=== PATIENT | female | born 1945 | race Caucasian/White ===

== ENCOUNTER 2022-09-08 11:05 | Outpatient (CLI) | payer MEDICARE, OTHER, SELFPAY | END 2022-09-08 11:06 | disposition home or self-care (01) | PROVIDERS: PCP Family Medicine; Visit Provider Orthopaedic Surgery Sports Medicine | DX: Z01.818 Encounter for other preprocedural examination (principal) | CPT/HCPCS: 36415; 86850; 86900; 86901 ==

== ENCOUNTER 2022-09-10 11:06 | Day surgery (SDC) | payer MEDICARE, OTHER, SELFPAY ==
[2022-09-07] MEDS: MIDAZOLAM HCL 1 MG/ML inj IVP (14:20)
[2022-09-07] MEDS: fentaNYL 100 MCG/2 ML inj IVP (14:20)
[2022-09-10] VITALS (21 sets, daily range): BP systolic 96–140; BP diastolic 56–83; PULSE 58–84; RESP 14–20; TEMP 35.3–36.7; O2SAT 92–100; BMI 32.2
[2022-09-10] MEDS: CELECOXIB 200 MG CAPSULE PO ×2 (11:45→21:37)
[2022-09-10] MEDS: SODIUM CHLORIDE 0.9 % (FLUSH) 10 ML SYRINGE IVF (11:45)
[2022-09-10] MEDS: OXYCODONE (CR) 10 MG TAB.ER.12H PO (11:45)
[2022-09-10] MEDS: LACTATED RINGERS 1000 ML 1,000 ML 100 ML IV ×2 (11:45→16:31)
[2022-09-10] MEDS: ACETAMINOPHEN 500 MG TABLET 1000 MG PO ×3 (11:45→23:45)
--- NOTE | 2022-09-10 13:15 | CRLHL7_ITS ---
For Patients: As a result of the Cures Act, medical imaging exams and procedure reports are released immediately into your electronic medical record. You may view this report before your referring provider. If you have questions, please contact your health care provider. Indication: Hip replacement surgery Technique: AP hip fluoroscopic images. Fluoroscopy time 38.9 seconds. Findings/Impression: Hardware from a left total hip arthroplasty is in satisfactory position. Dictated by Demond Rashid MD @ 09/11/2022 9:30:21 AM (Electronically Signed)
--- NOTE | 2022-09-10 14:45 | W.PM.NB ---
Nerve Block Nerve Block Time Seen by Provider: 14:31 Date Seen: 09/10/22 Type of block requested by surgeon for post-operative analgesia: ESTELLE/LFCN Side: left Time out performed: Yes Verification of patient name: Yes Verification of date of : Yes Site marking: site marked Name of person performing procedure: Horace Gonzalez Continuous monitoring Was continuous monitoring of O2 sat, B/P, blow molding machine tender, recorded every 15 minutes?: Yes Procedure Checklist: sterile prep, needles and gloves Ultrasound guided. Images saved: Yes Medications given in 5ml increments after negative aspiration: Ropivicaine %: 0.5 mL: 20 Needle gauge: 20 Decadron (mg): 10 Precedex (mcg): 20 Patient tolerated procedure well: Yes Block Charges Block Charge (with Pro Fee): Femoral Nerve Use of Ultrasound Machine for Block: Yes- US Guidance/pain block
--- NOTE | 2022-09-10 14:45 | SUR.PREOP ---
TIME?OUT:?1419 PT/RN/MDA?VERIFICATION?OF?SURGICAL?SITE left hip,?PROCEDURE nerve block,?AND?CONSENT OBTAINED?PRIOR?TO?INVASIVE?PROCEDURE.
[2022-09-10] MEDS: TRANEXAMIC ACID 100 MG/ML INJ 1000 MG IV (15:05)
[2022-09-10] MEDS: CEFAZOLIN 2 GM in 0.9 % SODIUM CHLORIDE Mini-bag 100 ML IVPB ×2 (15:10→21:36)
--- NOTE | 2022-09-10 16:02 | PM.IMPN1 ---
Progress Note: A&P Assessment and plan (1) Osteoarthritis of left hip: Problem details: Severe Status: Acute Plan 1. s/p left total hip -pain control; diet, dvt ppx per surgery 2. hx of CAD/HTN/PAF -continue eliquis -continue BB, Statin, lisinopril 3. Hx of Type II DM -SSI 4. hx of HLD -continue statin 5. Hx of JEN 6. Hx of RODRIGUE; not on cpap Time Spent With Patient Total time spent: 30 Subjective Date Seen: 09/10/22 Interval history: s/p left total hip Spinal Anesthesia EBL 300 denies cp, sob, nausea, vomiting tolerating diet Exam Narrative: Exam Narrative: Gen: no acute distress HEENT: NCAT EOMI mmm CV: RRR normal s1 s2 Lungs: CTAB Abd: Soft,nt, nd Neuro: Alert, oriented, CN grossly intact; nonfocal screening?exam Psych: appropriate affect MSK: age appropriate muscle mass Skin; Warm, dry no rash on face Const: Vital Signs, click to edit/add: Vital Signs - 24 hr 09/10/22 12:04 09/10/22 14:20 09/10/22 14:30 Temperature 97.4 F L Pulse Rate 68 62 61 Respiratory Rate 16 16 16 Blood Pressure 137/68 124/71 122/70 Pulse Oximetry 98 99 98 Oxygen Delivery Me thod Room Air Nasal Cannula Nasal Cannula Oxygen Flow Rate 2 2
--- NOTE | 2022-09-10 16:39 | P.ORPRC_ITS ---
Procedure Note Date of procedure: 09/10/22 Procedure: PREOPERATIVE DIAGNOSIS: 1. Left hip osteoarthritis, severe, primary POSTOPERATIVE DIAGNOSIS: 1. Left hip osteoarthritis, severe, primary PROCEDURE: 1. Left total hip arthroplasty-anterior approach 2. 17626 - intraoperative fluoroscopy up to 1 hour. SURGEON: Chin Savage MD. RADAR AIR TRAFFIC CONTROLLER: HETAL Nance - Of note, a skilled business development assistant was critical for this case to aid in patient positioning, tissue retraction, limb manipulation/positioning, dislocation/relocation, patient safety, and closure. ANESTHESIA: Spinal anesthetic EBL: 300 mL IMPLANTS: DePuy J&J uncemented total hip Dyess cup size 52, hole eliminator, +0 neutral liner Actis stem, standard offset, size 7 +1 mm ceramic 32mm head. COMPLICATIONS: None evident INDICATIONS: The patient is a pleasant 76-year-old female who has experienced severe left hip pain and difficulty bearing weight. Workup included x-rays which revealed severe osteoarthrosis in the hip. Given the deformity, the dysfunction, and the pain, as well as the failure of nonoperative management, recommendation was made for surgery. FINDINGS: Full-thickness chondral loss probably throughout the femoral and superior acetabulum. Large osteophytes around the perimeter of the femoral head/neck junction in particular. Degenerative labral pathology. Large effusion upon entering the joint. DESCRIPTION OF PROCEDURE: Following a thorough discussion of risks, benefits, and alternatives consent was obtained and the left hip was marked. The patient was brought to the operating room and placed supine on the operating table. Induction of anesthesia was undertaken. 2 g IV Ancef and 1 g tranexamic acid was administered within 1 hr of incision preoperatively. Proper time-out was performed identifying proper patient, site, procedure. The operative extremity was prepped and draped in the appropriate sterile fashion using ChloraPrep after the patient was positioned on the [place] table with head in neutral alignment and all bony prominences well padded. C-arm fluoroscopic imaging was utilized to confirm proper pelvis rotation and position, and to get true AP films of both the contralateral left, and the affected left hip. This is for comparison. A longitudinal incision was made starting approximately 1 cm distal to the ASIS, and 3-4 cm lateral. The incision was extended distally aiming toward the lateral border the patella. Sharp incision through skin and bovie cautery through the subcutaneous tissue allowed identification of the TFL fascia. This was sharply divided, and the fascia bluntly released from the muscle fibers as we dissected medial. Upon coming to the medial border, we were able to retract the TFL laterally, and penetrated the deeper fascia and identify the crossing circumflex vessels. These were ligated/cauterized. The rectus was elevated from the capsule, and retractors placed laterally and medially along the femoral neck to help with visualization of the capsule. We then performed an inverted T capsulotomy. The capsule was tagged for later repair. Retractors were placed inside the capsule. The femoral neck was visualized after releasing medially down to the lesser trochanter, along the saddle laterally, and up onto the acetabulum. The femoral neck cut was made in line with our preoperative templating. The head was removed in a single piece, and sized. We turned our attention to acetabular preparation. Initially, the labrum was resected from around the perimeter, the pulvinar was excised, allowing us to visualize the false wall. We started the reaming with a 43 mm reamer. This was medialized down to the true wall. We then enlarged our reamers sequentially up to one size less than the selected cup size. We trialed at the same size and found it to have an excellent fit. The selected cup was then opened, inserted, and impacted in line with the goal of 40-45? of abduction, and 20-25? of anteversion. This was confirmed on C-arm fluoroscopic imaging to be in the appropriate/goal position. Once the cup was placed we placed a hole eliminator and a liner consistent with preop planning. Attention was turned to the femoral preparation. The limb was extended, externally rotated, and adducted. The posteromedial capsule was released, as retractors were placed allowing excellent access to the proximal femur. Initially a dust box worker was followed by canal finder followed by various broaches. We broached sequentially up to size noted above, found it to have excellent rotational control, and trialing various heads and necks, revealed that appropriate neck offset, and the above noted head size provided the greatest stability, and pentecostal of length, and offset. C-arm fluoroscopic imaging confirmed position of the stem, as well as leg lengths, which were compared with the pre procedure all fluoroscopic images. Trial implants were removed, the real femoral stem inserted, as was the ceramic head. After reducing, the leg was placed through range of motion and stability was confirmed anterior, posterior, and lateral. A 3 min Betadine soak was then performed, and thorough irrigation with normal saline followed. Closure of the capsule was performed with #1 PDS. Bleeding was confirmed to be controlled at this stage, and the TFL fascia was closed with #0 strata fix. Subcutaneous, and subcuticular closure was performed with 2-0 Vicryl and 4-0 Monocryl, respectively. Dressings were applied, and the patient was awoken from anesthesia and transferred the PACU in stable condition. A skilled business development assistant was critical for this case to aid in patient positioning, tissue retraction, proximal femur exposure, limb manipulation/positioning, dislocation/relocation, patient safety, and closure. PLAN: 1. Weight bear as tolerated operative extremity. 2. 23 hr perioperative antibiotics. 3. Ice. 4. PT/OT consults for ambulation assistance/mobility education. 5. Social work consult for discharge planning. 6. DVT prophylaxis with at SCDs, Gordon Bhatti, and Eliquis (5 mg b.i.d. a medication she is on at baseline).
--- NOTE | 2022-09-10 16:39 | W.ANESCHARGE ---
Anesthesia Charges Start Date/Time Anesthesia Start Date: 09/10/22 Anesthesia Start Time: 14:50 Stop Date/Time Anesthesia Stop Date: 09/10/22 Anesthesia Stop Time: 16:53 Summary Emergency: No Extremes of Age: Over 69-CPT 91620
--- NOTE | 2022-09-10 16:54 | CRLHL7_ITS ---
For Patients: As a result of the Century Cures Act, medical imaging exams and procedure reports are released immediately into your electronic medical record. You may view this report before your referring provider. If you have questions, please contact your health care provider. Indication: Post op NELLIE LT Technique: AP hip centered pelvis and lateral view left hip Findings/Impression: Hardware from a left total hip arthroplasty is in satisfactory position. Bone alignment is normal. No sign of acute fracture. Postop changes are within normal limits. Dictated by Demond Rashid MD @ 09/11/2022 9:20:27 AM (Electronically Signed)
[2022-09-10] MEDS: OXYCODONE 5 MG TABLET PO ×3 (18:24→23:47)
[2022-09-10] MEDS: ROSUVASTATIN CALCIUM 10 MG TABLET 40 MG PO (21:37)
[2022-09-11 03:36] VITALS: BP 120/73; PULSE 66; RESP 18; TEMP 36.5; O2SAT 94
--- NOTE | 2022-09-11 04:52 | PC.NURSE ---
pt up to the bathroom x 2 with asst of 1 with walker and gait belt. C/o pain to left hip while walking and sitting. PRN given with relief. No c/o nausea. No BM this shift. Pt declined stool softener. Blood glucose 268, pt declined insulin.
[2022-09-11] MEDS: OXYCODONE 5 MG TABLET PO ×2 (05:42→08:42)
[2022-09-11] MEDS: ACETAMINOPHEN 500 MG TABLET 1000 MG PO (05:42)
[2022-09-11] MEDS: CEFAZOLIN 2 GM in 0.9 % SODIUM CHLORIDE Mini-bag 100 ML IVPB (05:43)
[2022-09-11 06:21] LABS: Basophils Absolute Auto 0.01 K/uL (0.00-0.30); Basophils Percent Auto 0.1 % (0.0-3.0); Hematocrit 33.1 % (33.0-51.0); Hemoglobin* 10.8 gm/dL (12.0-16.0); Immature Granulocytes Abs Auto 0.02 K/uL (0.00-0.30); Immature Granulocytes Pct Auto 0.2 %; Lymphocytes Percent Auto 6.7 % (20-44); Mean Corpuscular HGB Conc 33 gm/dL (32-36); Mean Corpuscular Hemoglobin 31 pg (26-34); Mean Corpuscular Volume 96 fL (80-100); Monocytes Percent Auto 4.1 % (0.0-11.0); Neutrophils Percent Auto 88.9 % (42.0-72.0); Platelet Count* 157 K/uL (140-440); RDW Coefficient of Variation % 11.9 % (11.5-15.5); Red Blood Count 3.46 m/uL (4.00-5.20); White Blood Count* 10.92 K/uL (4.50-11.00)
[2022-09-11 06:26] LABS: Slide Review Reflex No
[2022-09-11 06:36] LABS: Potassium* 4.7 mmol/L (3.6-5.1); Sodium* 137 mmol/L (135-149)
[2022-09-11 06:39] LABS: Blood Urea Nitrogen* 19 mg/dL (7-30); Creatinine* 0.6 mg/dL (0.5-1.5); Est. Creatinine Clearance* 33.84; Estimated Glomerular Filt Rate 92 ml/min
[2022-09-11 07:00] VITALS: BP 114/64; PULSE 70; RESP 18; TEMP 36.5; O2SAT 94
[2022-09-11] MEDS: LACTATED RINGERS 1000 ML 1,000 ML 75 ML IV (07:01)
--- NOTE | 2022-09-11 08:24 | PM.ORPN ---
Subjective Subjective Date Seen: 09/11/22 Principal diagnosis: Status postop day 1 left total hip arthroplasty - anterior approach Interval history: Patient reports doing well. No acute events over night. She is surprised how well she is feeling. Feels that she is mentally in a good place. Pain managed with scheduled /PRN medications and ice. DVT prophylaxis apixaban (chronic medication), bilateral knee high Gordon stockings, and SCDs. Denies fevers, chills, aches, N/V, CP, SOB/SOW, tachycardia, or lightheadedness. Ortho Exam Narrative Exam Narrative: -Patient appears comfortable in bed; no apparent acute distress -Alert and oriented times 3 -Operative hip swollen; soft tissues supple; no obvious erythema. Ecchymosis minimal. Warmth appropriate -Surgical dressing clean, dry, intact; no obvious drainage, no erythematous streaking peripheral to the bandage -Bilateral calves soft and supple; no significant swelling, edema, tenderness, erythema, discoloration, warmth, or palpable cords -2+ DP/PT pulses, intact dermatomes and myotomes distally (5/5 strength). Numbness about the lateral femoral cutaneous nerve distribution. Const Vital Signs, click to edit/add: Vital Signs - 24 hr 09/10/22 12:04 09/10/22 14:20 09/10/22 14:30 Temperature 97.4 F L Pulse Rate 68 62 61 Pulse Rate [Left Pulse Oximeter] Respiratory Rate 16 16 16 Blood Pressure 137/68 124/71 122/70 Blood Pressure [Right Arm] Pulse Oximetry 98 99 98 Oxygen Delivery Method Room Air Nasal Cannula Nasal Cannula Oxygen Flow Rate 2 2 09/10/22 16:48 09/10/22 16:52 09/10/22 16:55 Temperature 98.1 F Pulse Rate 59 L 62 60 Pulse Rate [Left Pulse Oximeter] Respiratory Rate 16 14 14 Blood Pressure 96/57 L 104/56 L 103/60 Blood Pressure [Right Arm] Pulse Oximetry 100 100 100 Oxygen Delivery Method Room Air Room Air Room Air Oxygen Flow Rate 09/10/22 17:00 09/10/22 17:05 09/10/22 17:10 Temperature Pulse Rate 60 62 62 Pulse Rate [Left Pulse Oximeter] Respiratory Rate 14 16 14 Blood Pressure 108/62 108/56 L 103/56 L Blood Pressure [Right Arm] Pulse Oximetry 100 100 100 Oxygen Delivery Method Room Air Room Air Room Air Oxygen Flow Rate 2 2 09/10/22 17:18 09/10/22 17:24 09/10/22 17:30 Temperature 95.5 F L 96.3 F L Pulse Rate 58 L 61 Pulse Rate [Left Pulse Oximeter] 61 Respiratory Rate 14 16 16 Blood Pressure 122/66 Blood Pressure [Right Arm] 113/76 108/68 Pulse Oximetry 100 94 Oxygen Delivery Method Room Air Room Air Room Air Oxygen Flow Rate 2 09/10/22 17:45 09/10/22 18:00 09/10/22 18:15 Temperature 96.5 F L Pulse Rate Pulse Rate [Left Pulse Oximeter] 60 62 65 Respiratory Rate 16 16 16 Blood Pressure Blood Pressure [Right Arm] 122/74 138/62 137/69 Pulse Oximetry 93 94 94 Oxygen Delivery Method Room Air Room Air Room Air Oxygen Flow Rate 09/10/22 18:30 09/10/22 19:00 09/10/22 20:30 Temperature 96.9 F L 97.1 F L 97.9 F Pulse Rate Pulse Rate [Left Pulse Oximeter] 71 67 67 Respiratory Rate 16 16 18 Blood Pressure Blood Pressure [Right Arm] 140/83 H 138/71 112/58 L Pulse Oximetry 93 94 94 Oxygen Delivery Method Room Air Room Air Room Air Oxygen Flow Rate 09/10/22 19:30 09/10/22 23:27 09/10/22 23:45 Temperature 97.7 F 97.6 F 97.6 F Pulse Rate Pulse Rate [Left Pulse Oximeter] 84 64 Respiratory Rate 20 18 Blood Pressure Blood Pressure [Right Arm] 139/80 120/66 Pulse Oximetry 93 94 Oxygen Delivery Method Room Air Room Air Oxygen Flow Rate 09/11/22 03:36 Temperature 97.7 F Pulse Rate Pulse Rate [Left Pulse Oximeter] 66 Respiratory Rate 18 Blood Pressure Blood Pressure [Right Arm] 120/73 Pulse Oximetry 94 Oxygen Delivery Method Room Air Oxygen Flow Rate Assessment and Plan Assessment and plan (1) Osteoarthritis of left hip: Problem details: Severe Status: Resolved (2) Status post total replacement of left hip: Problem details: NELLIE-AA (09/10/2022, Dr. Savage) Status: Acute Plan - Complete 23 hour perioperative antibiotics. - PT/OT consult for education and assistance. - Social work consult for discharge planning - Prescribed analgesics as needed - DVT prophylaxis: Apixaban, bilateral knee high Gordon Hose stockings and SCDs - Anticipation is for discharge to home with friend today 09/11/2022 if the patient remains medically stable, pain is controlled, and they are safe with mobilization.
--- NOTE | 2022-09-11 08:27 | P.DS_ITS ---
DS: Providers Provider Date Seen: 09/11/22 Date of admission: Med/Surg Recovery 09/10/2022 Primary care physician: Matthias Hoover MD Consults: 09/10/22 17:36 Consult to Occupational Therapy [CONS] Routine Comment: Reason(s) for OT Consult:: ADLs Prior to Discharge Any Restrictions?:: No Restrictions Comment: Consult to Physical Therapy [CONS] Routine Comment: Ambulate in the black today Reason(s) for PT Consult:: Evaluate and Treat Any Restrictions?:: No Restrictions Comment: Nursing Activity Consult to Physician [CONS] Routine Comment: Consulting Provider: Hospitalists Has provider been notified: No Consult to Skein Winding Operator [CONS] Routine Comment: Reason for Consult:: Discharge Planning Needs Attending Physician on discharge: Chin Savage MD Date of Discharge: 09/11/22 DS: Diagnosis Discharge Diagnosis (1) Status post total replacement of left hip: Status: Acute Problem details: NELLIE-AA (09/10/2022, Dr. Savage) DS: Summary Hospital Course Hospital Course: The patient has a history of left hip osteoarthritis, primary, severe. After appropriate preoperative evaluation, the patient underwent left total hip arthroplasty. Postoperatively given anticoagulation for deep vein thrombosis prophylaxis (Apixaban, chronic medication for patient). They progressed to PT/OT and were felt ready and prepared for discharge to home with appropriate pain medication and anticoagulation medications. Status at Discharge Functional status at discharge: uses cane/walker Overall status at discharge: patient is progressing back to baseline Time Spent with Patient Time attestation: Total time spent providing and/or coordinating discharge services: Exam Const: Vital Signs, click to edit/add: Vital Signs - 24 hr 09/10/22 12:04 09/10/22 14:20 09/10/22 14:30 Temperature 97.4 F L Pulse Rate 68 62 61 Pulse Rate [Left P ulse Oximeter] Respiratory Rate 16 16 16 Blood Pressure 137/68 124/71 122/70 Blood Pressure [Ri ght Arm] Pulse Oximetry 98 99 98 Oxygen Delivery Me thod Room Air Nasal Cannula Nasal Cannula Oxygen Flow Rate 2 2 09/10/22 16:48 09/10/22 16:52 09/10/22 16:55 Temperature 98.1 F Pulse Rate 59 L 62 60 Pulse Rate [Left P ulse Oximeter] Respiratory Rate 16 14 14 Blood Pressure 96/57 L 104/56 L 103/60 Blood Pressure [Ri ght Arm] Pulse Oximetry 100 100 100 Oxygen Delivery Me thod Room Air Room Air Room Air Oxygen Flow Rate 09/10/22 17:00 09/10/22 17:05 09/10/22 17:10 Temperature Pulse Rate 60 62 62 Pulse Rate [Left P ulse Oximeter] Respiratory Rate 14 16 14 Blood Pressure 108/62 108/56 L 103/56 L Blood Pressure [Ri ght Arm] Pulse Oximetry 100 100 100 Oxygen Delivery Me thod Room Air Room Air Room Air Oxygen Flow Rate 2 2 09/10/22 17:18 09/10/22 17:24 09/10/22 17:30 Temperature 95.5 F L 96.3 F L Pulse Rate 58 L 61 Pulse Rate [Left P ulse Oximeter] 61 Respiratory Rate 14 16 16 Blood Pressure 122/66 Blood Pressure [Ri ght Arm] 113/76 108/68 Pulse Oximetry 100 94 Oxygen Delivery Me thod Room Air Room Air Room Air Oxygen Flow Rate 2 09/10/22 17:45 09/10/22 18:00 09/10/22 18:15 Temperature 96.5 F L Pulse Rate Pulse Rate [Left P ulse Oximeter] 60 62 65 Respiratory Rate 16 16 16 Blood Pressure Blood Pressure [Ri ght Arm] 122/74 138/62 137/69 Pulse Oximetry 93 94 94 Oxygen Delivery Me thod Room Air Room Air Room Air Oxygen Flow Rate 09/10/22 18:30 09/10/22 19:00 09/10/22 20:30 Temperature 96.9 F L 97.1 F L 97.9 F Pulse Rate Pulse Rate [Left P ulse Oximeter] 71 67 67 Respiratory Rate 16 16 18 Blood Pressure Blood Pressure [Ri ght Arm] 140/83 H 138/71 112/58 L Pulse Oximetry 93 94 94 Oxygen Delivery Me thod Room Air Room Air Room Air Oxygen Flow Rate 09/10/22 19:30 09/10/22 23:27 09/10/22 23:45 Temperature 97.7 F 97.6 F 97.6 F Pulse Rate Pulse Rate [Left P ulse Oximeter] 84 64 Respiratory Rate 20 18 Blood Pressure Blood Pressure [Ri ght Arm] 139/80 120/66 Pulse Oximetry 93 94 Oxygen Delivery Me thod Room Air Room Air Oxygen Flow Rate 09/11/22 03:36 Temperature 97.7 F Pulse Rate Pulse Rate [Left P ulse Oximeter] 66 Respiratory Rate 18 Blood Pressure Blood Pressure [Ri ght Arm] 120/73 Pulse Oximetry 94 Oxygen Delivery Me thod Room Air Oxygen Flow Rate DS: Data Data Completed and Pending Labs on day of discharge: Labs from last 24 hours 09/11/22 09/11/22 05:24 05:24 WBC 10.92 RBC 3.46 L Hgb 10.8 L Hct 33.1 MCV 96 MCH 31 MCHC 33 RDW Coeff of [place] 11.9 Plt Count 157 Neut % (Auto) 88.9 H Lymph % (Auto) 6.7 L [place] % (Auto) 4.1 Eos % (Auto) 0.0 Baso % (Auto) 0.1 Neut # (Auto) 9.70 H Lymph # (Auto) 0.70 L [place] # (Auto) 0.40 Eos # (Auto) 0.00 Baso # (Auto) 0.01 Sodium 137 Potassium 4.7 BUN 19 Creatinine 0.6 Estimated Creat Clear 33.84 Estimated GFR 92 Discharge Plan Discharge Disposition: Home, Self-Care Discharging Surgeon: Chin Savage Follow-Up Appointment: 1 week PO with [facility] Prescriptions: New sennosides-docusate sodium [Senna-S] 8.6-50 mg tablet 1 - 4 tab-cap PO BID PRN (Reason: constipation) Qty: 60 0RF Rx Instructions: Hold medication if experiencing loose stools. oxycodone 5 mg tablet 2.5 - 5 mg PO Q4-6H MDD 6 PRN (Reason: pain) Qty: 42 0RF Rx Instructions: Take as needed for postop pain: 2.5mg mild pain, 5mg moderate-severe pain; wean as tolerated. Continued Eliquis 5 mg tablet 5 mg PO BID acetaminophen 500 mg tablet 500 mg PO Q6H PRN Label Comments: TAKE 1-2 TABS BY MOUTH EVERY 6 HOURS NEEDED. MAX DAILY DOSE IS 4000MG No Action rosuvastatin 40 mg tablet 40 mg PO HS Label Comments: TAKE 1 TABLET (40 MG) BY MOUTH AT BEDTIME. FOR CHOLESTEROL. amoxicillin 500 mg capsule 2,000 mg PO ONCE PRN Label Comments: TAKE 2 CAPSULES BY MOUTH NOW THEN 1CAP BY MOUTH 4 TIMES A DAY UNTIL GONE metoprolol succinate 25 mg tablet extended release 24 hr 25 mg PO DAILY Label Comments: TAKE 1 TABLET BY MOUTH EVERY DAY lisinopril 20 mg tablet 20 mg PO DAILY nitroglycerin 0.4 mg tablet, sublingual 0.4 mg sublingual Q5-15M PRN Rx Instructions: do not exceed 3 doses per episode aspirin [Adult Low Dose Aspirin] 81 mg tablet,delayed release (DR/EC) 81 mg PO DAILY ferrous sulfate [Feosol] 325 mg (65 mg iron) tablet 325 mg PO DAILY calcium carbonate 500 mg calcium (1,250 mg) tablet 500 mg PO BID Activity Level: Activity as Tolerated, Weight Bearing as Tolerated, Use Cane and Use Walker Activity Detail: Wound: ?Do not remove original dressing; we will remove this at first postop visit in 1 week. Only remove dressing if integrity is in question. ?No immersing wound in water; showering okay; light scrub with your hand and body soap, rinse, dab dry ?Sutures are under the skin, will dissolve; allow surgical glue to come off naturally; do not scrub the wound or apply ointments/lotions ?Call our office with any redness that streaks, excessive drainage from the wound, or wound gapping. Ice/Elevate: ?Ice as needed for swelling and discomfort (cryocuff or ice pack); elevate frequently above the heart JILLIAN socks: ?Wear for 1 month, remove for 1 hour 3 times per day ?These are frustrating to take on/off, but are important for blood clot prevention for 1 month after surgery Blood Clot Prevention (DVT): ?Medication: Apixaban (chronic medication for patient) Driving: ?Do not drive while taking narcotic pain medication ?Anticipate 4-6 weeks no driving if operative leg is driving leg Dental: ?No elective dental work for 6 months post-op. If there is an urgent/emergent dental need, contact our office for an antibiotic prescription. Smoking/Alcohol: ?Do not smoke; do no drink alcohol especially when taking postoperative oral narcotic medication Seek Care from you Primary Care Provider if you experience the following issues in the postoperative phase and beyond: ?Bacterial infections such as: pneumonia, bacterial skin infection (cellulitis), UTI, high fever, chills unrelated to the operative body part - call your primary care physician urgently for treatment in hopes to protect your health and the metal implant. Referrals: ?PT, OT per patient preference - evaluate treat total hip arthroplasty protocol (gait training, ROM, ADLs) Follow up: ?Ortho surgeon follow-up in 6 weeks; repeat radiographs AP pelvis, cross-table lateral operative hip ?PA-C visit in 1 week *If there are any acute concerns regarding your surgery, please call our orthopedic clinic ([phone]) Discharge Diet: Regular Patient Instructions: Surgical Site Infections (DC) Forms: Work/School Release Follow-up: Matthias Hoover MD [Primary Care Provider] - Discharge Orders: Discharge Order (Routine); Ordered 09/11/22 Ordered By: Phoenix Lim
[2022-09-11] MEDS: METOPROLOL SUCCINATE (XL) 25 MG TAB PO (08:42)
[2022-09-11] MEDS: CELECOXIB 200 MG CAPSULE PO (08:42)
[2022-09-11] MEDS: APIXABAN 5 MG TABLET PO (08:43)
[2022-09-11] MEDS: lisinopriL 20 MG TABLET PO (08:43)
[2022-09-11] MEDS: FERROUS SULFATE 325 MG TABLET PO (08:43)
--- NOTE | 2022-09-11 10:18 | PM.IMPN1 ---
Progress Note: A&P Assessment and plan (1) Status post total replacement of left hip: Problem details: NELLIE-AA (09/10/2022, Dr. Savage) Status: Acute Plan 1. s/p left total hip POD #1 -pain control; diet, dvt ppx per surgery 2. hx of CAD/HTN/PAF -continue eliquis -continue BB, Statin, lisinopril 3. Hx of Type II DM -SSI 4. hx of HLD -continue statin 5. Hx of JEN 6. Hx of RODRIGUE; not on cpap Dispo-ok to dc; post operative follow up with Ortho Time Spent With Patient Total time spent: 15 Subjective Date Seen: 09/11/22 Interval history: patient felt dizzy earlier in the morning but currently denies dizziness, nausea, vomiting, chest pain discharging today Roommate will be helping her at home Exam Narrative: Exam Narrative: Gen: No acute distress HEENT: NCAT EOMI MMM CV: RRR s1 s2 LCTAB Abd: soft, nt, nd Const: Vital Signs, click to edit/add: Vital Signs - 24 hr 09/10/22 12:04 09/10/22 14:20 09/10/22 14:30 Temperature 97.4 F L Pulse Rate 68 62 61 Pulse Rate [Left P ulse Oximeter] Respiratory Rate 16 16 16 Blood Pressure 137/68 124/71 122/70 Blood Pressure [Ri ght Arm] Pulse Oximetry 98 99 98 Oxygen Delivery Me thod Room Air Nasal Cannula Nasal Cannula Oxygen Flow Rate 2 2 09/10/22 16:48 09/10/22 16:52 09/10/22 16:55 Temperature 98.1 F Pulse Rate 59 L 62 60 Pulse Rate [Left P ulse Oximeter] Respiratory Rate 16 14 14 Blood Pressure 96/57 L 104/56 L 103/60 Blood Pressure [Ri ght Arm] Pulse Oximetry 100 100 100 Oxygen Delivery Me thod Room Air Room Air Room Air Oxygen Flow Rate 09/10/22 17:00 09/10/22 17:05 09/10/22 17:10 Temperature Pulse Rate 60 62 62 Pulse Rate [Left P ulse Oximeter] Respiratory Rate 14 16 14 Blood Pressure 108/62 108/56 L 103/56 L Blood Pressure [Ri ght Arm] Pulse Oximetry 100 100 100 Oxygen Delivery Me thod Room Air Room Air Room Air Oxygen Flow Rate 2 2 09/10/22 17:18 09/10/22 17:24 09/10/22 17:30 Temperature 95.5 F L 96.3 F L Pulse Rate 58 L 61 Pulse Rate [Left P ulse Oximeter] 61 Respiratory Rate 14 16 16 Blood Pressure 122/66 Blood Pressure [Ri ght Arm] 113/76 108/68 Pulse Oximetry 100 94 Oxygen Delivery Me thod Room Air Room Air Room Air Oxygen Flow Rate 2 09/10/22 17:45 09/10/22 18:00 09/10/22 18:15 Temperature 96.5 F L Pulse Rate Pulse Rate [Left P ulse Oximeter] 60 62 65 Respiratory Rate 16 16 16 Blood Pressure Blood Pressure [Ri ght Arm] 122/74 138/62 137/69 Pulse Oximetry 93 94 94 Oxygen Delivery Me thod Room Air Room Air Room Air Oxygen Flow Rate 09/10/22 18:30 09/10/22 19:00 09/10/22 20:30 Temperature 96.9 F L 97.1 F L 97.9 F Pulse Rate Pulse Rate [Left P ulse Oximeter] 71 67 67 Respiratory Rate 16 16 18 Blood Pressure Blood Pressure [Ri ght Arm] 140/83 H 138/71 112/58 L Pulse Oximetry 93 94 94 Oxygen Delivery Me thod Room Air Room Air Room Air Oxygen Flow Rate 09/10/22 19:30 09/10/22 23:27 09/10/22 23:45 Temperature 97.7 F 97.6 F 97.6 F Pulse Rate Pulse Rate [Left P ulse Oximeter] 84 64 Respiratory Rate 20 18 Blood Pressure Blood Pressure [Ri ght Arm] 139/80 120/66 Pulse Oximetry 93 94 Oxygen Delivery Me thod Room Air Room Air Oxygen Flow Rate 09/11/22 03:36 Temperature 97.7 F Pulse Rate Pulse Rate [Left P ulse Oximeter] 66 Respiratory Rate 18 Blood Pressure Blood Pressure [Ri ght Arm] 120/73 Pulse Oximetry 94 Oxygen Delivery Me thod Room Air Oxygen Flow Rate Labs Labs: Laboratory Results - last 24 hr 09/11/22 09/11/22 05:24 05:24 WBC 10.92 RBC 3.46 L Hgb 10.8 L Hct 33.1 MCV 96 MCH 31 MCHC 33 RDW Coeff of Landon 11.9 Plt Count 157 Neut % (Auto) 88.9 H Lymph % (Auto) 6.7 L Morrill % (Auto) 4.1 Eos % (Auto) 0.0 Baso % (Auto) 0.1 Neut # (Auto) 9.70 H Lymph # (Auto) 0.70 L Morrill # (Auto) 0.40 Eos # (Auto) 0.00 Baso # (Auto) 0.01 Sodium 137 Potassium 4.7 BUN 19 Creatinine 0.6 Estimated Creat Clear 33.84 Estimated GFR 92
--- NOTE | 2022-09-18 07:26 | SUR.OPER ---
Verified chart info with Braydon RUDOLPH.
== END 2022-09-11 11:10 | disposition home or self-care (01) ==
LOC: OR 11:07 → MEDSURG 11:11
PROVIDERS: PCP Family Medicine; Visit Provider Orthopaedic Surgery Sports Medicine
PROC: (CPT 27130; principal; 2022-09-10 13:15)
DX: M16.12 Unilateral primary osteoarthritis, left hip (principal); M25.552 Pain in left hip; G47.33 Obstructive sleep apnea (adult) (pediatric); I25.10 Atherosclerotic heart disease of native coronary artery without angina pectoris; I10 Essential (primary) hypertension; E11.9 Type 2 diabetes mellitus without complications; E78.5 Hyperlipidemia, unspecified; R42 Dizziness and giddiness
CPT/HCPCS: 27130; 01214; 36415; 64447; 73501; 76000; 76942; 82565; 82962; 84132; 84295; 84520; 85025; 97116; 97161; 97165; 99100; A9270; C1776; J0690; J1100; J2250; J2370; J2795; J3010; J7120